=== PATIENT | male | born 1995 | race Caucasian/White ===

== ENCOUNTER 2021-10-06 17:40 | Emergency (ER) | payer OTHER ==
[~2021-10-06] VITALS: Ht 167.6 cm; Wt 81.7 kg
[2021-10-06 18:27] LABS: ABSOLUTE BASOPHILS 0.1 thou/uL (0.0-0.2); ABSOLUTE LYMPHOCYTES 2.1 thou/uL (0.8-5.3); ABSOLUTE MONOCYTES 0.7 thou/uL (0.0-1.2); ABSOLUTE NEUTROPHILS 11.6 thou/uL (1.6-8.1); BASOPHILS 0.4 %; EOSINOPHILS 0.3 %; HEMATOCRIT 48.3 % (42.0-52.0); HEMOGLOBIN 15.8 gm/dL (14.0-18.0); LYMPHOCYTES 14.5 %; MCH 28.4 pg (26.0-34.0); MCHC 32.7 g/dL (28.0-37.0); MONOCYTES 4.9 %; MPV 8.4 fl. (7.2-11.1); NUCLEATED RBCS 0 /100WBC; PLATELET COUNT* 365 thou/uL (150-400); POLYS 79.9 %; RBC 5.55 mil/uL (4.50-6.00); RDW-CV 13.9 % (10.5-14.5); WBC 14.6 thou/uL (4.0-11.0)
[2021-10-06 18:35] LABS: CALCIUM 9.8 mg/dL (8.5-10.1); CREATININE 1.6 mg/dL (0.6-1.3); POTASSIUM 3.2 mmol/L (3.5-5.1)
[2021-10-06 18:40] LABS: ALBUMIN 4.9 g/dL (3.4-5.0); TOTAL BILIRUBIN 0.7 mg/dL (<0.1-1.0); TOTAL PROTEIN 8.6 g/dL (6.4-8.2)
[2021-10-06] MEDS ORDERED: PERCOCET PO (18:46)
[2021-10-06] MEDS ORDERED: FLOMAX0.4 MG PO (20:15)
[2021-10-06] MEDS ORDERED: CIPROFLOXACIN500 M1 PO (20:15)
[2021-10-06 20:31] LABS: ICTOTEST (BILI CONFIRMATORY) Negative (Negative); URINE BILIRUBIN 1+ (Negative); URINE BLOOD 3+ (Negative); URINE CLARITY HAZY; URINE COLOR YELLOW; URINE GLUCOSE-RANDOM NEGATIVE (Negative); URINE KETONES 1+ (Negative); URINE LEUKOCYTES-REFLEX NEGATIVE (Negative); URINE NITRITE-REFLEX NEGATIVE (Negative); URINE PROTEIN 2+ (Negative); URINE SPECIFIC GRAVITY >= 1.030 (1.005-1.030)
[2021-10-06 20:32] LABS: BACTERIA-REFLEX 1-9 Few /HPF (None Seen); CASTS None Seen /LPF (None Seen); SQUAMOUS 4-10 Moderate /LPF (0-3); URINE RBC >20 Many /HPF (0-2); URINE WBC-REFLEX 0-5 Rare /HPF (0-5)
[2021-10-06 20:33] LABS: CRYSTALS None Seen /LPF (None Seen); YEAST-REFLEX Present (None Seen)
[2021-10-06 20:34] VITALS: BP 132/81
== END 2021-10-06 20:36 | disposition home or self-care (01) ==
LOC: M.ERS 17:40
PROVIDERS: Family Medicine
DX: N13.2 Hydronephrosis with renal and ureteral calculous obstruction (principal); R11.2 Nausea with vomiting, unspecified; Z88.2 Allergy status to sulfonamides